=== PATIENT | female | born 1990 | race Two or more races ===

== ENCOUNTER 2022-05-01 08:01 | Day surgery (SDC) | payer MEDICAID ==
[2022-04-26 11:27] LABS: Basophils # (auto) 0.1 10 ^3/uL (0-0.2); Basophils % (auto) 0.8 % (0.0-2.0); Eosinophils # (auto) 0.1 10 ^3/uL (0-0.8); Eosinophils % (auto) 1.6 % (0.0-7.0); Hematocrit 44.8 % (36.0-46.0); Hemoglobin 14.6 g/dL (12.2-16.2); Lymphocytes # (auto) 1.9 10 ^3/uL (0.4-5.4); Lymphocytes % (auto) 26.4 % (10.0-50.0); Mean Corpuscular Hemoglobin 31.1 pg (28.0-32.0); Mean Corpuscular Hgb Conc. 32.6 g/dL (32.0-36.0); Mean Corpuscular Volume 95.2 fL (80.0-100.0); Monocytes # (auto) 0.8 10 ^3/uL (0-1.3); Monocytes % (auto) 11.3 % (0.0-12.0); Neutrophils # (auto) 4.2 10 ^3/uL (1.6-8.6); Neutrophils % (auto) 59.9 % (37.0-80.0); Red Blood Cells 4.71 10^6/uL (4.0-5.20); Red Cell Distribution Width 13.9 % (11.8-14.3)
[2022-04-26 11:43] LABS: INR 0.96 (0.9-1.15)
[2022-04-26 11:57] LABS: Albumin 3.7 g/dL (3.4-5.0); Calcium 8.7 mg/dL (8.5-10.1); Potassium 4.3 mmol/L (3.5-5.1)
[2022-04-26 12:09] LABS: BUN/Creatinine Ratio 13.7; Bilirubin, Total 0.4 mg/dL (0.2-1.0); Total Protein 7.7 g/dL (6.4-8.2)
[2022-04-26 12:15] LABS: Urine Bacteria NONE SEEN /hpf (None Seen); Urine Blood 3+ /uL (Negative); Urine Mucus FEW (None Seen); Urine Specific Gravity 1.022 (1.001-1.035); Urine WBC 6 /hpf (0 - 5)
[~2022-05-01] VITALS: Ht 180.3 cm; Wt 81.6 kg
[2022-05-01] MEDS ORDERED: ceFAZolin 1GM/50ML 100 ML IV ONE (08:27)
[2022-05-01] MEDS ORDERED: LIDOCAINE 1%HCL (LOCAL ANESTH) 10 ML MDV ONE (08:54)
[2022-05-01] MEDS ORDERED: fentaNYL CITRATE 5 ML ONE (09:16)
[2022-05-01] MEDS ORDERED: MIDAZOLAM HCL 2MG/2ML 2ml VIAL (1mg/ml) ONE (09:16)
[2022-05-01] MEDS: BUPIVACAINE 0.25% INJ 50ML VIAL IJ ONE ×2 (10:00→11:30)
[2022-05-01] MEDS ORDERED: ONDANSETRON HCL 4 MG/2 ML VIAL IV PRN (11:30)
[2022-05-01] MEDS ORDERED: HYDROmorphone HCL 2 MG/ML VL/or syr IV PRN ×2 (11:30)
[2022-05-01] MEDS ORDERED: PROPOFOL 10 MG/ML 20 ML IV ONE (11:37)
[2022-05-01] MEDS ORDERED: ROCURONIUM 10MG/ML 10ML VIAL IV ONE (11:37)
[2022-05-01] MEDS ORDERED: ONDANSETRON HCL 4 MG/2 ML VIAL ONE (11:37)
[2022-05-01] MEDS ORDERED: GLYCOPYRROLATE 0.2 MG/ML 1ML VIAL ONE (11:37)
[2022-05-01 12:45] VITALS: BP 107/68
== END 2022-05-01 12:50 | disposition home or self-care (01) ==
LOC: SUR 08:01
PROVIDERS: ATTEND Podiatrist
DX: S92.901K Unspecified fracture of right foot, subsequent encounter for fracture with nonunion (principal); T84.84XA Pain due to internal orthopedic prosthetic devices, implants and grafts, initial encounter; X58.XXXD Exposure to other specified factors, subsequent encounter; Y83.8 Other surgical procedures as the cause of abnormal reaction of the patient, or of later complication, without mention of misadventure at the time of the procedure; G89.29 Other chronic pain; Z20.822 Contact with and (suspected) exposure to COVID-19
CPT/HCPCS: 20680; 28740; 36415; 73630; 76000; 80053; 81001; 84702; 85025; 85610; 85730; C1713; C1769; J0690; J2001; J2250; J2405; J2704; J3010; J3490; U0003